=== PATIENT | male | born 1960 | race Caucasian/White ===

== ENCOUNTER 2017-03-11 08:16 | Day surgery (SDC) | payer BC, SELFPAY ==
[2017-03-09 15:40] VITALS: BP 150/97
[~2017-03-11] VITALS: Ht 185.4 cm; Wt 102.6 kg
[2017-03-11] VITALS (18 sets, daily range): BP systolic 121–153; BP diastolic 80–105
[~2017-03-11 08:16] MED LIST: ALLO100T PO; CEPH-578 PO; ESOM40CA PO; KETO10 PO; OLME40TA8 PO; TAMS0.4C32 PO
[2017-03-11] MEDS ORDERED: WATER FOR INJECTION,STERILE 5 ML VIAL INJ ONE (09:00)
[2017-03-11] MEDS: CEFTRIAXONE SODIUM 1 GM IVP ONE ×2 (09:00→13:05)
[2017-03-11] MEDS ORDERED: LACTATED RINGERS 1000ML 1,000 ML IV ONE (09:52)
[2017-03-11] MEDS ORDERED: WATER FOR INJECTION,STERILE 20 ML VIAL ONE (09:53)
[2017-03-11] MEDS ORDERED: ISOVUE-370 50ML VIAL IV ONE (11:43)
[2017-03-11] MEDS ORDERED: GLYCOPYRROLATE 0.2 MG/ML 5 ML VIAL ONE (13:11)
[2017-03-11] MEDS ORDERED: PROPOFOL 10 MG/ML 20ML VIAL IV ONE (13:11)
[2017-03-11] MEDS ORDERED: DEXAMETHASONE SOD PHOSPHATE 10MG/ML 1ML VIAL ONE (13:11)
[2017-03-11] MEDS ORDERED: LIDOCAINE PF 2% 5ML ABBOJECT ONE (13:11)
[2017-03-11] MEDS ORDERED: MIDAZOLAM HCL 1 MG/ML 2ML VIAL ONE (13:11)
[2017-03-11] MEDS ORDERED: FENTANYL CITRATE PF 50 MCG/1 ML 2ML VIAL ONE (13:11)
[2017-03-11] MEDS ORDERED: ONDANSETRON HCL 4 MG/2 ML VIAL ONE (13:11)
[2017-03-11] MEDS ORDERED: ROCURONIUM BROMIDE 10MG/1ML 5ML VL ONE (13:18)
[2017-03-11] MEDS ORDERED: FENTANYL CITRATE PF 50 MCG/1 ML 5ML AMP IV ONE (13:33)
[2017-03-11] MEDS ORDERED: MEPERIDINE-PF 25 MG/ML SYG ONE ×2 (14:34→15:01)
[2017-03-11] MEDS ORDERED: KETOROLAC TROMETHAMINE 30MG/ML ONE (14:47)
[2017-03-11] MEDS ORDERED: PHENAZOPYRIDINE HCL 200 MG TABLET ONE (15:58)
[2017-03-11] MEDS ORDERED: SODIUM CHLORIDE 0.9% 1000ML 1,000 ML IV ONE (15:59)
== END 2017-03-11 17:45 | disposition home or self-care (01) ==
LOC: DAH 08:16
PROVIDERS: ATTEND Urology
DX: N13.2 Hydronephrosis with renal and ureteral calculous obstruction (principal); I10 Essential (primary) hypertension; Z79.899 Other long term (current) drug therapy; Z98.890 Other specified postprocedural states; K21.9 Gastro-esophageal reflux disease without esophagitis; M10.9 Gout, unspecified
CPT/HCPCS: 52356; 76000; 82360; 88300; A4354; A4358; A4510; A4600; C1726; C1758; C1769 ×2; C2617; J0696; J1100; J1885; J2001; J2175 ×2; J2250; J2405; J2704; J3010 ×2; J3490 ×2; J7030 ×2; J7120; Q9967

== ENCOUNTER → 2021-02-03 | Outpatient (CLI) | payer BC | END | disposition home or self-care (01) | LOC: CANPRECLI → RAH 10:00 | PROVIDERS: ATTEND Orthopaedic Surgery | DX: M75.111 Incomplete rotator cuff tear or rupture of right shoulder, not specified as traumatic (principal) | CPT/HCPCS: 73221 ==

== ENCOUNTER 2021-10-01 06:44 | Day surgery (SDC) | payer BC ==
[2021-09-29 10:42] LABS: CREATININE 1.2 mg/dL (0.5-1.5); POTASSIUM 4.4 mmol/L (3.5-5.1)
[2021-09-29 10:48] LABS: BASOPHILS % (AUTO) 0.8 % (0.0-5.0); EOSINOPHILS % (AUTO) 2.2 % (0.0-8.0); HEMATOCRIT 52.7 % (42-54); LYMPHOCYTES % (AUTO) 33.2 % (21.0-51.0); MEAN CORPUSCULAR HEMOGLOBIN 29.4 pg (27.0-33.0); MEAN CORPUSCULAR HGB CONC 34.3 g/dL (32.0-36.0); MEAN CORPUSCULAR VOLUME 85.7 fL (79-99); MONOCYTES % (AUTO) 11.5 % (3.0-13.0); NEUTROPHILS % (AUTO) 51.8 % (40.0-77.0); PLATELET COUNT (AUTO) 199 K/uL (130-400); RED BLOOD CELL COUNT(AUTO) 6.15 MIL/uL (4.50-6.20); RED CELL DISTRIBUTION WIDTH 13.1 % (11.0-15.5); WHITE BLOOD COUNT (AUTO) 7.7 K/uL (4.8-10.8)
[2021-09-30 11:11] VITALS: BP 128/85
[2021-10-01] VITALS (18 sets, daily range): BP systolic 95–135; BP diastolic 63–87
[~2021-10-01] VITALS: Ht 185.4 cm; Wt 119.3 kg
[~2021-10-01 06:44] MED LIST changes: +AMLO-259 PO; +CARV6.25 PO; +CEFAZOLIN SODIUM 1 GM VIAL IVP SCH; -CEPH-578 PO; +CYCL-309 PO; -ESOM40CA PO; -KETO10 PO; -OLME40TA8 PO
[2021-10-01] MEDS ORDERED: LACTATED RINGERS 1000ML 1,000 ML IV ONE (07:00)
[2021-10-01] MEDS ORDERED: CEFAZOLIN SODIUM 1 GM VIAL ONE (07:00)
[2021-10-01] MEDS ORDERED: EPINEPHRINE 1 MG/ML 30ML VIAL IJ ONE (07:52)
[2021-10-01] MEDS ORDERED: ROCURONIUM 10MG/1ML SYR 10 MG/ML ML ONE (08:37)
[2021-10-01] MEDS ORDERED: SUCCINYLCHOLINE 200MG/10ML SYR ONE (08:37)
[2021-10-01] MEDS ORDERED: PROPOFOL 10 MG/ML 20ML VIAL IV ONE (08:37)
[2021-10-01] MEDS ORDERED: MIDAZOLAM HCL 1 MG/ML 2ML VIAL ONE (08:37)
[2021-10-01] MEDS ORDERED: FENTANYL CITRATE PF 50 MCG/1 ML 2ML VIAL ONE (08:38)
[2021-10-01] MEDS ORDERED: ROPIVACAINE 0.5% 5MG/ML 30ML IJ ONE (08:53)
[2021-10-01] MEDS ORDERED: CEFAZOLIN SODIUM 2 GM VIAL IV ONE (09:12)
[2021-10-01] MEDS ORDERED: EPHEDRINE SULFATE 50 MG/ML AMPULE ONE (09:32)
[2021-10-01] MEDS ORDERED: PHENYLEPHRINE HCL 10 MG/ML 1ML VIAL IV ONE (10:04)
[2021-10-01] MEDS ORDERED: GLYCOPYRROLATE 1 MG/5 ML SYRINGE ONE (11:07)
[2021-10-01] MEDS ORDERED: NEOSTIGMINE 5MG/5ML SYR IV ONE (11:07)
[2021-10-01] MEDS ORDERED: IBUP-2077 PO (11:14)
[2021-10-01] MEDS ORDERED: CEPH500B PO (11:14)
[2021-10-01] MEDS ORDERED: HYDR-4060 PO (11:14)
== END 2021-10-01 13:40 | disposition home or self-care (01) ==
LOC: DAH 06:44
PROVIDERS: ATTEND Orthopaedic Surgery
DX: M75.111 Incomplete rotator cuff tear or rupture of right shoulder, not specified as traumatic (principal); M19.011 Primary osteoarthritis, right shoulder; M75.41 Impingement syndrome of right shoulder; M67.813 Other specified disorders of tendon, right shoulder; D16.9 Benign neoplasm of bone and articular cartilage, unspecified; M25.619 Stiffness of unspecified shoulder, not elsewhere classified; G89.29 Other chronic pain; I10 Essential (primary) hypertension; K21.9 Gastro-esophageal reflux disease without esophagitis; E66.9 Obesity, unspecified; E78.5 Hyperlipidemia, unspecified; Z79.01 Long term (current) use of anticoagulants; Z79.899 Other long term (current) drug therapy
CPT/HCPCS: 80048; 85025; 87426; 36415; 29827; 64415; 29826; 29824; 76942; A4565; J0690 ×2; J7120; J3010; J0330; J3490 ×2; J2710; J0171; J2250; J2704; J2795; J2370; A6204; G0168; A4649 ×3; A4930; C1713 ×2; A5120; A4215; A4223; A4222; A4221; A4663; A4600

== ENCOUNTER → 2021-12-28 | Outpatient (CLI) | payer BC ==
[~2021-12-28] MED LIST changes: -CEFAZOLIN SODIUM 1 GM VIAL IVP SCH; +CEPH500B PO; +HYDR-4060 PO; +IBUP-2077 PO
== END | disposition home or self-care (01) ==
LOC: RAH 08:32
PROVIDERS: ATTEND Nurse Practitioner
DX: M65.812 Other synovitis and tenosynovitis, left shoulder (principal); M75.42 Impingement syndrome of left shoulder
CPT/HCPCS: 73221

== ENCOUNTER → 2025-01-18 | Outpatient (CLI) | payer BC ==
--- NOTE | 2025-01-19 02:17 | HMCIMG ---
EXAM: CT Abdomen and Pelvis Without IV Contrast CLINICAL HISTORY: Calculus of kidney, generalized abdominal pain TECHNIQUE: Axial computed tomography images of the abdomen and pelvis were obtained without intravenous contrast. Multiplanar reformatted coronal and sagittal images were reviewed. CONTRAST: No IV contrast. COMPARISON: No prior imaging available for comparison. FINDINGS: LUNG BASES: Minimal pleural thickening with subpleural atelectatic bands in the left lower lobe. No pleural effusion or consolidation. LIVER: Liver mildly enlarged, measuring approximately 15.5 cm in craniocaudal dimension. Diffuse decreased attenuation consistent with fatty infiltration. No focal hepatic lesion. GALLBLADDER AND BILE DUCTS: Gallbladder normal in size and wall thickness. No calculi or pericholecystic inflammation. No biliary ductal dilatation. PANCREAS: Normal in size and attenuation. No ductal dilatation or peripancreatic inflammation. SPLEEN: Normal in size and attenuation. No focal lesion. ADRENAL GLANDS: Normal in shape and attenuation bilaterally. KIDNEYS, URETERS, AND BLADDER: Both kidneys normal in size and enhancement. Nonobstructing right upper pole calculus (0.3 cm) and left lower pole calculus (0.2 cm) noted. No hydronephrosis or hydroureter. Mild symmetric perinephric fat stranding bilaterally, likely chronic or reactive. Urinary bladder unremarkable for degree of distension. STOMACH AND BOWEL: Stomach and small bowel loops are normal in caliber. Mild fecal impaction noted in the colon and rectum. Scattered uncomplicated colonic diverticulosis. No bowel wall thickening, obstruction, or free air. APPENDIX: Appendix normal in caliber without periappendiceal inflammation. PERITONEUM: No ascites or pneumoperitoneum. LYMPH NODES: No pathologically enlarged abdominal or pelvic lymph nodes. REPRODUCTIVE: Prostate enlarged, estimated volume approximately 60 cc. Seminal vesicles unremarkable. VASCULATURE: Abdominal aorta and its major branches are normal in caliber. No aneurysm or thrombosis. ABDOMINAL WALL: Small umbilical hernia with fascial defect measuring approximately 1 cm, containing fat only. No bowel involvement. BONES: Moderate degenerative lumbar spondylosis and facet joint arthrosis, predominant at L3???L4. No acute osseous lesion or fracture. IMPRESSION: * Bilateral nonobstructing renal calculi (right upper pole 0.3 cm, left lower pole 0.2 cm) without hydronephrosis or obstruction. * Mild hepatomegaly with diffuse hepatic steatosis. * Enlarged prostate gland measuring approximately 60 cc. * Consolidated minor and incidental findings including mild bilateral perinephric fat stranding (likely chronic/reactive), uncomplicated colonic diverticulosis with mild fecal impaction, minimal pleural thickening and subpleural atelectatic bands in the left lower lobe, small fat-containing umbilical hernia, and moderate degenerative lumbar spondylosis with facet arthrosis at L3???L4. * No acute intra-abdominal or pelvic abnormality identified. /[place]
== END | disposition home or self-care (01) ==
LOC: RAH 13:00
PROVIDERS: ATTEND Family Medicine
DX: N20.0 Calculus of kidney (principal); R10.84 Generalized abdominal pain; N40.1 Benign prostatic hyperplasia with lower urinary tract symptoms; K76.0 Fatty (change of) liver, not elsewhere classified; K42.9 Umbilical hernia without obstruction or gangrene; M47.816 Spondylosis without myelopathy or radiculopathy, lumbar region; K56.41 Fecal impaction; K57.30 Diverticulosis of large intestine without perforation or abscess without bleeding
CPT/HCPCS: 74176